=== PATIENT | male | born 1980 | race Caucasian/White ===

== ENCOUNTER → 2016-08-21 | Outpatient (CLI) | payer OTHER ==
--- NOTE | ~2016-08-21 | NM78 ---
[facility] A Service of [facility] & [facility] RADIOLOGY TEXT RESULTS PATIENT: MERA PETE LOCATION: [facility] : [birth year] UNIT #: [id number] AGE: [address]: Irlanda Burnett MD SEX: M ORDER DR: [id number] [facility] [address] [place], [place] [address] [id number] O MR#: [id number] Acc #: [id number] NAME: MERA PETE : 1980 SEX: M STUDY DATE/TIME: 08/21/2016 6:29 UNIT: [facility] ROOM: STUDY DESCRIPTION: [place] Radiopharm Tx oral Attending Physician: Irlanda Burnett M.D. Referring Physician: Irlanda Burnett M.D. Ordering Physician: Irlanda Burnett M.D. Primary Care Physician: Primary Care Physician No MEDICAL IMAGING REPORT This report is preliminary unless electronic signature is present EXAM I-131 dosing, 08/21 INDICATION Hyperthyroidism. Abnormal 24-hour uptake value of 75.2% on recent on I-123 scan. History of weight loss over the last 6 months with heart palpitations and increased nervousness. FINDINGS Patient's identify was confirmed. The patient's questions regarding therapy were answered. He was given a copy of his radiation precautions and he stated he would have no problem following. He was then administered a single capsule containing 25.8 mCi of I-131. This was given with sips of water. Patient was instructed not to eat for at least 60 minutes. He was then discharge from the department with his instructions. IMPRESSION Patient was administered 25.8 mCi of I-131 via a single capsule orally for hyperthyroidism. Dictated by... Bam Espinosa Jr., M.D. THIS IS AN ELECTRONICALLY VERIFIED REPORT Bam Espinosa Jr., M.D. at 08/21/2016 4:47 PM Man TD: 08/21/2016 09:38 JOB #: [id number] MEDICAL IMAGING REPORT Page 1 of 1 COPY
== END | disposition home or self-care (01) ==
LOC: CNUC 06:17
DX: E05.00 Thyrotoxicosis with diffuse goiter without thyrotoxic crisis or storm (principal)
CPT/HCPCS: 79005